=== PATIENT | male | born 1955 | race Caucasian/White ===

== ENCOUNTER 2022-06-05 10:36 | Emergency (ER) | payer MEDICARE, BC, SELFPAY ==
[2022-06-05 10:49] VITALS: BP 127/96; RESP 18; TEMP 37.2; O2SAT 100; BMI 32.5
--- NOTE | 2022-06-05 10:50 | ED.GENADULT ---
HPI - General Adult General Time Seen by Provider: 10:51 Date Seen: 06/05/22 Chief complaint: Cough Stated complaint: headache/body ache/cough/feeling warm Time Seen by Provider: 06/05/22 10:47 Source: patient and RN notes reviewed Mode of arrival: ambulatory Limitations: no limitations History of Present Illness HPI narrative: Patient is a 66-year-old male coming in with concern of possible COVID. Since Saturday, 2 days ago, he has developed coughing, chest congestion, occasional shortness of breath. He has not checked his temperature at home but he has had what he thought was fevers with chills and sweating. Denies any sore throat. He has had no GI symptomatology such as nausea, vomiting, diarrhea, abdominal pain. He has had his initial 2 COVID shots and 1 booster. He is not aware of any definite ill contacts. He last took Tylenol about 5:00 a.m. this morning for his symptoms. He would be interested in treatment of COVID should he have it. Related Data Previous Rx's Medication Instructions Recorded nirmatrelvir 300 mg (150 mg See Rx Instructions PO .COMPLEX 06/05/22 x2)-ritonavir 100 mg tablet,dose #30 ea pack(EUA) (Paxlovid) Allergies Allergy/AdvReac Type Severity Reaction Status Date / Time sulfas Allergy Intermediate Rash Uncoded 06/05/22 11:00 Review of Systems Status of ROS: Reports: 10 or more systems reviewed and unremarkable except as noted in History and below [facility] Medical History (Updated 06/05/22 @ 12:22 by Susan Garcia MD) No significant past medical history Social History Smoking Status: Never smoker Do you use any of these nicotine containing products: None Second hand tobacco smoke exposure: No How often do you have a drink containing alcohol: never How often do you have six or more drinks on one occasion: Never AUDIT-C Alcohol total score: 0 Non-prescribed substance use: denies use Exam Const: Vital Signs, click to edit/add: Vital Signs - 24 hr 06/05/22 10:49 Temperature 99 F Respiratory Rate 18 Blood Pressure [Le ft Upper Arm] 127/96 H Pulse Oximetry 100 Oxygen Delivery Me thod Room Air Documenting provider has reviewed patient's vital signs: yes Common normals: no apparent distress, oriented x3, no limitations, healthy appearing, alert and well nourished General appearance: cooperative, comfortable and well kempt Nutritional appearance: overweight HENMT: Common normals: normocephalic, head/scalp atraumatic, hearing grossly normal bilaterally, external ears normal, EAC's normal, TM's normal bilaterally, external nose normal, nasal mucous membranes and turbinates normal, moist oral mucous membranes, oropharynx normal, dentition normal and gingiva normal Head and scalp: normocephalic and atraumatic Nose: external nose normal and nasal mucous membranes and turbinates normal External ear: external ears normal External auditory canal: EAC's normal Tympanic membrane: TM's normal bilaterally Eye: Common normals: PERRL, EOMs intact bilaterally, conjunctivae normal and no scleral icterus Conjunctiva: conjunctiva(e) normal Pupil: PERRL Neck & C-Spine: Common normals: full ROM, no lymphadenopathy, supple, no meningeal signs, no JVD and thyroid normal Thyroid: thyroid normal Resp: Common normals: normal respiratory effort, no retractions, no use of accessory muscles and clear to auscultation bilaterally Auscultation: clear to auscultation bilaterally Cardio: Common normals: no JVD, regular rate, regular rhythm, S1 normal heart sound, S2 normal heart sound, no gallops, no clicks, no murmurs and no rub Rate: regular rate Rhythm: regular rhythm Heart sounds: S1 normal and S2 normal Neuro: Common normals: oriented x3 Sensorium/orientation: alert Meningeal signs: no meningeal signs Psych: Appearance: well kempt Course Course Hospital Course: We will obtain COVID and influenza on this patient as well as a portable chest x-ray. Reviewed with him that in the differential certainly COVID and other viral entities can cause upper respiratory infections. It is possible community-acquired pneumonia still a feasible diagnosis and thus will do the portable chest x-ray. We used a CBC to help differentiate this illness, will get a basic metabolic panel should this be COVID as we will need the creatinine level for calculation of his GFR/creatinine clearance. Vital Signs Vital signs: Initial Vital Signs Temperature 99 F 06/05/22 10:49 Temperature Source Temporal Artery Scan 06/05/22 10:49 Respiratory Rate 18 06/05/22 10:49 Blood Pressure 127/96 H 06/05/22 10:49 Blood Pressure Mean 106 06/05/22 10:49 Pulse Oximetry 100 06/05/22 10:49 Oxygen Delivery Method 06/05/22 10:49 Vital Signs Temperature 99 F 06/05/22 10:49 Respiratory Rate 18 06/05/22 10:49 Blood Pressure 127/96 H 06/05/22 10:49 Pulse Oximetry 100 06/05/22 10:49 Oxygen Delivery Method 06/05/22 10:49 Temperature 99 F 06/05/22 10:49 Respiratory Rate 18 06/05/22 10:49 Blood Pressure 127/96 H 06/05/22 10:49 Pulse Oximetry 100 06/05/22 10:49 Oxygen Delivery Method 06/05/22 10:49 Medical Decision Making Lab Data Lab results reviewed: Yes I reviewed the patient's lab results Labs: Lab Results 06/05/22 06/05/22 06/05/22 Range/Units 10:56 11:20 11:20 WBC 6.01 (4.50-11.00) K/uL RBC 5.45 (4.30-5.90) m/uL Hgb 16.2 (13.5-17.5) gm/dL Hct 50.2 (37.0-53.0) % MCV 92 (80-100) fL MCH 30 (26-34) pg MCHC 32 (32-36) gm/dL RDW Coeff of Oscar 13.3 (11.5-15.5) % Plt Count 142 (140-440) K/uL Neut % (Auto) 66.1 (42.0-72.0) % Lymph % (Auto) 15.6 L (20-44) % Hamblen % (Auto) 17.5 H (0.0-11.0) % Eos % (Auto) 0.3 (0.0-7.0) % Baso % (Auto) 0.3 (0.0-3.0) % Neut # (Auto) 3.97 (1.7-7.0) K/uL Lymph # (Auto) 0.90 (0.90-2.90) K/uL Hamblen # (Auto) 1.10 H (0.00-0.90) K/UL Eos # (Auto) 0.02 (0.00-0.50) K/uL Baso # (Auto) 0.02 (0.00-0.30) K/uL Abs Immat Gran (auto) 0.01 (0.00-0.30) K/uL Sodium 138 (135-149) mmol/L Potassium 4.2 (3.6-5.1) mmol/L Chloride 103 (96-114) mmol/L Carbon Dioxide 25 (20-32) mmol/L BUN 17 (7-30) mg/dL Creatinine 1.4 (0.5-1.5) mg/dL Estimated Creat Clear 51.20 Estimated GFR 55 ml/min Glucose 113 (60-115) mg/dL Calcium 8.3 L (8.4-10.6) mg/dL SARS-CoV-2 (PCR) POSITIVE SARS-CoV-2 A (Negative) Influenza Type A (PCR) Negative PCR FLU A (Negative) Influenza Type B (PCR) Negative PCR FLU B (Negative) Imaging Data Chest x-ray: Attestation: I have reviewed the pertinent imaging results. Radiologist's impression: Patient: [facility] Facility:?[facility] Patient ID:?[id number] Site Patient ID:?[id number]. Site :?[id number] Study:?XRay Chest PORTABLE-06/05/2022 11:10:05 AM Ordering Physician:Atif Davis Final Report: Indication: Cough, fever Comparison: None available. Technique: Single AP view chest Findings: There is hyperinflation and chronic interstitial change. Calcified granuloma is appreciated within the right hemithorax. There is no dense consolidation, effusion or pneumothorax. There is minimal basilar atelectasis. Cardiac silhouette is mildly prominent with median sternotomy wires. The bony thorax is grossly intact. Impression: Hyperinflation and chronic interstitial changes without acute cardiopulmonary abnormality. No dense consolidation. Dictated by Yury Priest MD @ 06/05/2022 11:17:36 AM (Electronic Signature) Critical Care Time Critical Care Time Critical Care Time: No Discharge Plan Discharge Clinical Impression: COVID-19 Patient Disposition: Home, Self-Care Condition: Stable Instructions: COVID-19 (Coronavirus Disease 2019) (ED), COVID-19: Slow the Coronavirus Spread (ED) Additional Instructions: Start Paxlovid and take as prescribed. It is imperative that you start this as soon as possible as this is the time dependent medicine as far as starting it within an appropriate time frame from the onset of illness. You need to stop the Flomax while you are on the Paxlovid and not start the Flomax back up until 3 days after you are done with treatment for the COVID. May use Tylenol and/or ibuprofen per bottle directions as needed for fever or symptom control. If you are becoming progressively short of breath, developed chest pain, have further concerns from your COVID illness, please seek re-evaluation. You need to quarantine per CDC guidelines. Activity Level: Activity as Tolerated Prescriptions: New Paxlovid (EUA) 300 mg (150 mg x 2)-100 mg tablets,dose pack See Rx Instructions .ROUTE .COMPLEX Qty: 30 0RF Rx Instructions: take TWO 150 mg tablets of nirmatrelvir with ONE 100 mg tablet of ritonavir twice daily for 5 days Follow Up/Referrals: Reinaldo Watson MD [Primary Care Provider] - Stand Alone Forms: [employer] Info Instructions
--- NOTE | 2022-06-05 10:56 | CRLHL7_ITS ---
For Patients: As a result of the Cures Act, medical imaging exams and procedure reports are released immediately into your electronic medical record. You may view this report before your referring provider. If you have questions, please contact your health care provider. Indication: Cough, fever Comparison: None available. Technique: Single AP view chest Findings: There is hyperinflation and chronic interstitial change. Calcified granuloma is appreciated within the right hemithorax. There is no dense consolidation, effusion or pneumothorax. There is minimal basilar atelectasis. Cardiac silhouette is mildly prominent with median sternotomy wires. The bony thorax is grossly intact. Impression: Hyperinflation and chronic interstitial changes without acute cardiopulmonary abnormality. No dense consolidation. Dictated by Yury Priest MD @ 06/05/2022 11:17:36 AM (Electronically Signed)
--- OUTSIDE RECORDS SUMMARY | 2022-06-05 11:16 | XMS_ITS | Clinical Summary ---
:1955 Author Organization [employer] [facility] [place] [address] Care Team Providers Name Role Phone VotelReinaldo MD Primary Care Provider [phone] Allergies Active Allergy Reactions Severity Noted Date Comments Sulfa (Sulfonamide Antibiotics) Rash 7 Medications Medication Sig Dispensed Refills Start Date End Date Status tamsulosin (FLOMAX) TAKE 1 CAPSULE BY 90 Capsule 3 10/16/2021 Active 0.4 mg MOUTH EVERY DAY capsuleIndications: AFTER A MEAL Difficulty urinating Active Problems Problem Noted Date History of myasthenia gravis 12/20/2021 Biceps tendonitis on right 05/12/2021 AC joint arthropathy 05/12/2021 Left testicular pain 05/19/2020 Adenomatous colon polyp 08/13/2018 Overview: Colonoscopy 07/2018 polyp, repeat in 5 y ears Encounters Date Type Specialty Care Team Description 06/05/2022 Travel 06/05/2022 Nurse Triage Votel, Reinaldo Kearney MD He adache from Last 3 Months Immunizations Name Administration Dates Next Due AMB Influenza, IIV3 (Age >=3 06/27/2012 years)(Flu Clinic Only) COVID-19 vaccine (Moderna 01/02/2021, 12/05/2020 100mcg/0.5mL) PF, MDV COVID-19 vaccine (Pfizer-BioNTech 09/20/2021 30mcg/0.3mL) PF, MDV Influenza Virus, Unspecified 06/23/2018, 07/16/2016 Influenza, High-dose Quadrivalent 06/15/2021 Inactivated Influenza, IIV3 (Age 6-35 mos) 07/30/2011 Influenza, IIV3 (Age >=3 years) 07/06/2014, 07/04/2013, 07/17, 08/04/2010, 05/25/2009, 07/20/2006, 07/09/2005 Influenza, IIV4 06/15/2019, 06/16/2018 Influenza, IIV4 (=>6mos) MDV 06/15/2019 Influenza, Inactivated IIV3 (Age 65+ 06/30/2020 Years) Preserv Free Influenza,CCIIV4 PRESERV FREE 07/19/2017 Pneumococcal Poly,23-Valent 09/20/2021 (Pneumovax) Pneumococcal conj 13-Valent (Prevnar 11/11/2019 13) Tdap 07/07/2018, 05/25/2009 Zoster (Shingrix-RZV, recombinant) 07/28/2021, 05/25/2021 Family History Medical History Relation Name Comments Diabetes Brother 1 Keith Diabetes Brother 2 Kale Half brother Cancer Father type not clear. age 61 Diabetes Mother Heart Disease Mother of [place] at 67 Relation Name Status Comments Brother 1 Keith Brother 2 Kale Father Mother Social History Tobacco Use Types Packs/Day Years Used Date Never Smoker Smokeless Tobacco: Never Used Tobacco Cessation: Counseling Given: Yes Alcohol Use Standard Drinks/Week Comments Yes 0 (1 standard drink = 0.6 oz pure alcoho l) occ Alcohol Habits Answer Date Recorded How often do you have a drink containing alcohol? 2-4 times a month 09/28/2020 How many drinks containing alcohol do you have on a 1 or 2 09/28/2020 typical day when you are drinking? How often do you have six or more drinks on one Never 09/28/2020 occasion? Comment: occ 12/20/2021 Sex Assigned at Date Recorded Not on file COVID-19 Exposure Response Date Recorded In the last 10 days, have you been in contact with No / Unsu re 06/05/2022 9:38 AM CDT someone who was confirmed or suspected to have Coronavirus/COVID-19? Obstetrics History Last Filed Vital Signs Vital Sign Reading Time Taken Comments Blood Pressure 126/81 12/20/2021 9:40 AM CDT Pulse 75 12/20/2021 9:40 AM CDT Temperature 36.7 ??C (98.1 ??F) 12/20/2021 9:40 AM CDT Respiratory Rate - - Oxygen Saturation 98% 12/20/2021 9:40 AM CDT Inhaled Oxygen Concentration - - Weight 97.5 kg (215 lb) 12/20/2021 9:40 AM CDT Height 174.9 cm (5' 8.86) 12/20/2021 9:40 AM CDT Body Mass Index 31.88 12/20/2021 9:40 AM CDT Plan of Treatment Health Maintenance Due Date Last Done Comments Hepatitis C screening for age 0211/03/1973 17-79 COVID-19 vaccine series (4 - 01/18/2022 09/20/2021, 021, Booster for Moderna series) 12/05/2020 Influenza for age 65+ 05/17/2022 06/15/2021, 06/30/2020, 06/15/2019, Additional history exists BMI (ht and wt on same day) for 12/20/2022 12/20/2021, 09/17, age 18+ 09/20/2021, Additional history exists Depression screening for age 12+ 12/20/2022 12/20/2021, 01/2022, 09/28/2020, Additional history exists Medicare Wellness for age 65+ 12/20/2022 12/20/2021, 2020 Lipids for age 45-75 12/20/2026 12/20/2021, 05/03/2020, 07/07/2018, Additional history exists Tetanus booster 07/07/2028 07/07/2018, 05/25/2009 Colonoscopy through age 75 08/12/2028 08/12/2018, 8, 03/23/2008 Tdap Completed 07/07/2018, 05/25/2009 Zoster (shingles) series for age Completed 07/28/2021, 05/2021 50+ Pneumococcal series for age 65+ Completed 09/20/2021, 10/18 Results Not on filefrom Last 3 Months Insurance Payer Benefit Plan / Subscriber ID Effective Dates Phone Addre ss Type Group BLUE CROSS [place] BLUE [place]OSS [id number] 2019-Present [address] [address] [place], [place] [id number] [facility] 09/16/2000 [phone] [id number] [facility] (Home) BL [phone] [place], [place] (Work) [address] 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
[2022-06-05 11:28] LABS: Basophils Absolute Auto 0.02 K/uL (0.00-0.30); Basophils Percent Auto 0.3 % (0.0-3.0); Eosinophils Absolute Auto 0.02 K/uL (0.00-0.50); Eosinophils Percent Auto 0.3 % (0.0-7.0); Hematocrit 50.2 % (37.0-53.0); Hemoglobin* 16.2 gm/dL (13.5-17.5); Immature Granulocytes Abs Auto 0.01 K/uL (0.00-0.30); Lymphocytes Percent Auto 15.6 % (20-44); Mean Corpuscular HGB Conc 32 gm/dL (32-36); Mean Corpuscular Hemoglobin 30 pg (26-34); Mean Corpuscular Volume 92 fL (80-100); Monocytes Percent Auto 17.5 % (0.0-11.0); Neutrophils Absolute Auto 3.97 K/uL (1.7-7.0); Neutrophils Percent Auto 66.1 % (42.0-72.0); Platelet Count* 142 K/uL (140-440); RDW Coefficient of Variation % 13.3 % (11.5-15.5); Red Blood Count 5.45 m/uL (4.30-5.90); White Blood Count* 6.01 K/uL (4.50-11.00)
[2022-06-05 11:41] LABS: Chloride* 103 mmol/L (96-114); Potassium* 4.2 mmol/L (3.6-5.1); Sodium* 138 mmol/L (135-149)
[2022-06-05 11:44] LABS: Blood Urea Nitrogen* 17 mg/dL (7-30); Carbon Dioxide* 25 mmol/L (20-32); Creatinine* 1.4 mg/dL (0.5-1.5); Estimated Glomerular Filt Rate 55 ml/min; Glucose* 113 mg/dL (60-115)
[2022-06-05 11:45] LABS: Calcium* 8.3 mg/dL (8.4-10.6)
--- OUTSIDE RECORDS SUMMARY | 2022-06-05 11:45 | XMS_ITS | Clinical Summary ---
:1955 Author Organization [employer] [facility] [place] [address] Care Team Providers Name Role Phone VotelReinaldo MD Primary Care Provider [phone] Allergies Active Allergy Reactions Severity Noted [...] 60 Diabetes Mother Heart Disease Mother of [place] at 67 Relation Name Status Comments Brother [...] Type Group BLUE CROSS MR BLUE CROSS [id number] 2019-Present [address] [address] [place], [place] [id number] [facility] 09/16/2000 [phone] [facility] (Home[facility] [address] [phone] [place], [place] (Work) [address] Care Teams [employer] Relationship Specialty Start Date End Date Votel, Reinaldo Kearney MD PCP - General 02/01/06 [address] [place] [address]
[2022-06-05 11:46] LABS: PCR FLU A Negative PCR FLU A (Negative); PCR FLU B Negative PCR FLU B (Negative)
[2022-06-05 11:52] LABS: SARS PCR* POSITIVE SARS-CoV-2 (Negative)
[2022-06-05 11:56] LABS: Slide Review Reflex No
== END 2022-06-05 12:30 | disposition home or self-care (01) ==
PROVIDERS: Emergency Provider Family Medicine; PCP Family Medicine
DX: U07.1 COVID-19 (principal); J98.8 Other specified respiratory disorders
CPT/HCPCS: 36415; 71045; 80048; 85025; 87631; 99283